=== PATIENT | female | born 1945 | race Caucasian/White ===

== ENCOUNTER → 2016-07-04 | Outpatient (CLI) | payer MEDICARE, OTHER, MEDICAID ==
[~2016-07-04] MED LIST: SALINE FLUSH 10ml SYRINGE IVF ONE
== END ==
LOC: NWCC 09:57
PROVIDERS: ATTEND Internal Medicine
DX: S81.801A Unspecified open wound, right lower leg, initial encounter (principal); I87.2 Venous insufficiency (chronic) (peripheral); R60.0 Localized edema; X58.XXXS Exposure to other specified factors, sequela
CPT/HCPCS: 11042; 29581; A6021; A6210

== ENCOUNTER → 2016-07-11 | Outpatient (CLI) | payer MEDICARE, OTHER, MEDICAID | LOC: NWCC 10:05 | PROVIDERS: ATTEND Internal Medicine | DX: S81.801A Unspecified open wound, right lower leg, initial encounter (principal); W23.0XXS Caught, crushed, jammed, or pinched between moving objects, sequela; I87.2 Venous insufficiency (chronic) (peripheral); R60.0 Localized edema | CPT/HCPCS: 29581; G0463 ==

== ENCOUNTER → 2016-07-18 | Outpatient (CLI) | payer MEDICARE, OTHER, MEDICAID | LOC: NWCC 10:00 | PROVIDERS: ATTEND Internal Medicine | DX: S81.801A Unspecified open wound, right lower leg, initial encounter (principal); W23.0XXS Caught, crushed, jammed, or pinched between moving objects, sequela; I87.2 Venous insufficiency (chronic) (peripheral); R60.0 Localized edema | CPT/HCPCS: 11042; 29581 ==

== ENCOUNTER → 2016-07-23 | Outpatient (CLI) | payer MEDICARE, OTHER, MEDICAID | LOC: NWCC 14:10 | PROVIDERS: ATTEND Internal Medicine | DX: S81.801A Unspecified open wound, right lower leg, initial encounter (principal); X58.XXXS Exposure to other specified factors, sequela; I87.2 Venous insufficiency (chronic) (peripheral); R60.0 Localized edema | CPT/HCPCS: 29581; G0463 ==

== ENCOUNTER → 2016-08-01 | Outpatient (CLI) | payer MEDICARE, OTHER, MEDICAID | LOC: NWCC 10:13 | PROVIDERS: ATTEND Internal Medicine | DX: S81.801A Unspecified open wound, right lower leg, initial encounter (principal); I87.2 Venous insufficiency (chronic) (peripheral); R60.0 Localized edema; W23.0XXS Caught, crushed, jammed, or pinched between moving objects, sequela ==